=== PATIENT | female | born 1965 | race Caucasian/White ===

== ENCOUNTER 2020-04-03 10:29 | Emergency (ER) | payer SELFPAY ==
[~2020-04-03] VITALS: Ht 172.7 cm; Wt 55.0 kg
[2020-04-03 11:12] LABS: EOSINOPHILS % 3.9 % (0.0-5.0); HEMATOCRIT. 33.6 % (36.0-48.0); LYMPHOCYTES % 24.4 % (20.0-50.0); MEAN CORPUSCULAR VOLUME 76.3 fL (81.0-99.0); MEAN PLATELET VOLUME 8.2 fl (7.4-10.4); MONOCYTES % 8.5 % (2.0-8.0); NEUTROPHILS % 62.2 % (40.0-76.0); PLATELET 247 x1000/uL (130-400); RED BLOOD CELL COUNT 4.41 mill/uL (4.2-5.4); RED CELL DISTRIBUTION WIDTH 15.3 % (11.6-14.6)
[2020-04-03 11:17] LABS: CLARITY URINE CLOUDY (CLEAR); COLOR URINE YELLOW (YELLOW); KETONES URINE NEGATIVE (NEGATIVE); LEUKOCYTE ESTERASE URINE 1+ (NEGATIVE); NITRITE URINE POSITIVE (NEGATIVE); OCCULT BLOOD URINE NEGATIVE (NEGATIVE); PH URINE 6.5 (4.5-8.0); PROTEIN URINE NEGATIVE (NEGATIVE); SPECIFIC GRAVITY URINE 1.017 (1.005-1.030)
[2020-04-03 11:19] LABS: CHLORIDE 106 mEq/L (98-107)
[2020-04-03 11:27] LABS: ETHANOL BLOOD < 10 mg/dL
[2020-04-03 12:17] LABS: *AMPHETAMINES SCREEN URINE PRESUMTIVE POSITIVE (NEGATIVE); *BARBITURATES SCREEN URINE NEGATIVE (NEGATIVE); *BENZODIAZEPINES SCREEN URINE PRESUMTIVE POSITIVE (NEGATIVE); *COCAINE SCREEN URINE NEGATIVE (NEGATIVE)
[2020-04-03 12:18] LABS: METHADONE URINE SCREEN NEGATIVE (NEGATIVE); OPIATES URINE SCREEN NEGATIVE (NEGATIVE); PHENCYCLIDINE URINE SCREEN NEGATIVE (NEGATIVE)
[2020-04-03 12:22] LABS: CANNABINOID URINE SCREEN PRESUMTIVE POSITIVE (NEGATIVE)
[2020-04-03] MEDS: POTASSIUM CHLORIDE 20MEQ TABLET SR PO ONE (13:39)
[2020-04-03 14:16] VITALS: BP 135/62
== END 2020-04-03 14:47 | disposition home or self-care (01) ==
LOC: ER 10:45
DX: T43.621A Poisoning by amphetamines, accidental (unintentional), initial encounter (principal); X58.XXXA Exposure to other specified factors, initial encounter; N30.00 Acute cystitis without hematuria
CPT/HCPCS: 36415; 80053; 80305; 80307; 80320; 80329; 81003; 82962; 85025; 93005; 99284; G0480